=== PATIENT | female | born 1970 | race Caucasian/White ===

== ENCOUNTER → 2021-07-05 08:12 | Outpatient (BNVA) | payer BC, SELFPAY | PROVIDERS: Family Provider Family Medicine; PCP Nurse Practitioner Family; Visit Provider Obstetrics & Gynecology | DX: D25.9 Leiomyoma of uterus, unspecified (principal) | CPT/HCPCS: 76830 ==

== ENCOUNTER 2021-07-26 08:21 | Outpatient (CLI) | payer BC, SELFPAY ==
--- NOTE | 2021-07-26 08:24 | MM_ITS ---
WS: [id number] Exam: [place] [id number] Date/Time of Exam: 07/26/2021 8:26 AM Reason For Exam: SCREENING VIEWS: MLO and CC views both breasts. Comparison made with prior exam of 07/13/2015 and 06/17/2019. Findings: There was no sign of mass, architectural distortion or suspicious calcification in either breast. He terogeneously [place] MM/[place] [id number] Impression: BI-RADS: 2-Benign FOLLOW-UP: 1 Year Follow-up This mammogram was also analyzed by the Computer Aided Detection System R2 Imag e Rigging Supervisor.
== END 2021-07-26 08:22 | disposition home or self-care (01) ==
LOC: RADSHAW 08:23
PROVIDERS: PCP Nurse Practitioner Family; Visit Provider Nurse Practitioner Family
DX: Z12.31 Encounter for screening mammogram for malignant neoplasm of breast (principal)
CPT/HCPCS: 77067

== ENCOUNTER → 2021-11-05 08:32 | Outpatient (BNVA) | payer BC, SELFPAY | PROVIDERS: PCP Nurse Practitioner Family; Visit Provider Obstetrics & Gynecology | DX: Z20.822 Contact with and (suspected) exposure to COVID-19 (principal); D25.9 Leiomyoma of uterus, unspecified; N93.9 Abnormal uterine and vaginal bleeding, unspecified | CPT/HCPCS: 87635 ==

== ENCOUNTER 2021-11-11 13:25 | Inpatient (IN) | payer BC, SELFPAY ==
[2021-11-08 09:16] VITALS: BMI 25.6
--- NOTE | 2021-11-08 09:48 | ANES.PREANE2 ---
Pre-Anesthetic Assessment Height/Weight: Height 1.57 m Weight 63.503 kg Operation Date: 11/11/21 07:00 Proposed Procedures p Total Abdominal Hysterectomy 18871/d25.9/n93.9(Not Applicable) - Gracie Oliveira MD s Salpingectomy(Bilateral) - Gracie Oliveira MD Familial anesthetic complications: None Was Beta Julieta taken within 24 hours: N/A Was Clonidine taken within 24 hours: N/A Social No alcohol and No tobacco Exam alert, oriented x 3, clear to auscultation bilaterally and regular rate & rhythm Airway Submandibular: within normal limits Cervical ROM: within normal limits Mallampati: Class II Dentition: full CV/HEM Hypertension Metabolic Thyroid Disease Anesthetic Plan ASA status: 2 Anesthesia: General Risk of > 500 ml blood loss (7ml/kg in children): Yes, adequate IV access and fluids planned Medications/Allergies Home Medications Medication Instructions Recorded Confirmed Last Taken Type lisinopril 10 1 tab PO DAILY 06/10/20 11/08/21 Unknown History mg-hydrochlorothiazide 12.5 mg tablet ibuprofen 600 mg tablet 600 mg PO Q8H PRN 06/03/21 10/06/21 Unknown History Calcium 600 + D(3) 11/08/21 Unknown History levothyroxine 75 mcg tablet 75 mcg PO DAILY 11/08/21 11/08/21 Unknown History Allergies Allergy/AdvReac Type Severity Reaction Status Date / Time No Known Allergies Allergy Verified 11/08/21 09:12 [facility] Anesthesia Medical History Chronic hypertension Has had elevated blood pressure on and off since about 2016. Started on medication in April 2020 Hypothyroidism Diagnosed in April 2020 and is managed on medication by primary care provider No pertinent past medical history Denies diabetes, asthma, seizures, DVT/PE PCP: CHLOE Treadwell Surgical History S/P LEEP 11/02/2007----------> office LEEP procedure done by Dr. Patel for BLUE-3. Pathology of LEEP informed BLUE-3 and BLUE-2 with negative margins. Family History Mother Hypertension Diabetes Father Hyperlipidemia Heart disease Grandfather Heart disease maternal Denies family history of Colon cancer Ovarian cancer Breast cancer Uterine cancer Stroke Female Reproductive History Date of last menstrual period: 10/25/21 Data Anesthesia Cardiac Studies: No Data to Display
[2021-11-11] VITALS (16 sets, daily range): BP systolic 95–141; BP diastolic 45–84; PULSE 63–106; RESP 14–18; TEMP 36.2–37; O2SAT 90–99
[2021-11-11 09:53] LABS: OR HCG Qualitative Urine Negative (Negative)
[2021-11-11] MEDS: sodium chloride 0.9% 1,000 ML 30 ML IV (10:25)
--- NOTE | 2021-11-11 10:29 | P.ANESUD_ITS ---
Pre-Anesthetic Update Pre-Anesthetic Assessment: Date of Surgery/Procedure: 11/11/21 Preop Rema gnosis: Fibroid uterus Proposed Procedure: Operation Date: 11/11/21 10:50 Proposed Procedures p Total Abdominal Hysterectomy 41056/d25.9/n93.9(Not Applicable) - Gracie Valladares MD s Salpingectomy(Bilateral) - Gracie Oliveira MD Any changes to Pre-Anesthetic Assessment?: No Changes from Pre-Anesthetic Assessment: none Last Intake: Intake Last Liquid Date 11/10/21 Last Liquid Time 21:00 Last Solid Date 11/10/21 Last Solid Time 18:00 Vitals: Temperature 97.9 F 11/11/21 09:35 Temperature Source Temporal Artery S can 11/11/21 09:35 Pulse Rate 106 H 11/11/21 09:35 Pulse Rhythm 11/11/21 09:39 Pulse Strength 3+ Normal 11/11/21 09:39 Respiratory Rate 16 11/11/21 09:35 Blood Pressure 141/84 11/11/21 09:35 Blood Pressure Katy n 103 11/11/21 09:35 Pulse Oximetry 99 11/11/21 09:35 Oxygen Delivery Me thod 11/11/21 09:39 Cardiac Studies: No Data to Display
--- NOTE | 2021-11-11 10:40 | W.PM.OPSUD ---
Surgery/Procedure H&P Update DATE OF PROCEDURE: November 11, 2021 DATE H&P PERFORMED: 11/02/21 H&P UPDATE INFORMATION: I have reviewed H&P completed within last 30 days, I have examined patient prior to procedure, No changes to prior documentation and H&P is in [facility] EMR on date indicated PREOP DIAGNOSIS: Fibroid uterus PLANNED PROCEDURE: Operation Date: 11/11/21 10:50 Proposed Procedures p Total Abdominal Hysterectomy 73946/d25.9/n93.9(Not Applicable) - Gracie Oliveira MD s Salpingectomy(Bilateral) - Gracie Oliveira MD
--- NOTE | 2021-11-11 11:24 | SUR.OPER ---
attempted to contact family for surgical update
--- NOTE | 2021-11-11 12:57 | P.OP_ITS ---
Operative Report Date of procedure: November 11, 2021 OPERATIVE REPORT Date of surgery: 11/11/2021 Date of dictation: 11/11/2021 Preoperative diagnosis:Fibroid uterus, abnormal uterine bleeding, abdominal/back pain---- Postoperative diagnosis/findings: Same, enlarged multifibroid uterus, normal tubes and ovaries bilaterally Procedure done: Total abdominal hysterectomy, bilateral salpingo-oophorectomy Specimens removed/disposition of specimens: Uterus cervix bilateral tubes and ovaries Surgeon: Dr. Gracie Gray Practical Nursing Faculty: Madelyn Escoto Anesthesia: General endotracheal tube anesthesia Estimated blood loss: 150 ml Intravenous fluids: 900 mL of LR Urine output: 100 mL of clear urine at the end of procedure Medications: As per anesthesia records Complications: None, patient was extubated and taken to the recovery room in a stable condition. PROCEDURE: After consent was obtained patient was taken to the operating room where she was placed under general anesthesia.? Sequential compression boots and Bunn catheter were placed.? She was prepped and draped in the usual sterile fashion in a dorsal supine position. A horizontal suprapubic incision was made using a scalpel about 1 to 2 cm above the pubic bone and this was extended down to the Fascia using a combination of scalpel and Bovie. Good hemostasis was achieved in the subcutaneous field..? This was carried down to the fascia with electrocautery and a scalpel.? Fascia was incised in the midline and extended laterally sharply. Rectus muscles were in the midline sharply and? Peritoneum was identified and was sharply entered.? No adhesions were noted of the bowel or uterus onto the anterior abdominal wall.? The uterus was exteriorized and then the bowel was packed away and pelvis was visualized. The uterus was enlarged with multiple fibroids. The right and left round ligaments were identified clamped with the abdominal? Voyant and cauterized and then cut.? The broad ligament incision was extended inferiorly and carried over the lower uterine segment to meet with the dissection the contralateral side and a bladder flap was created.? The bladder was then off from the cervix sharply-this was done easily. A lot of blood vessels are noted in this area. Once the bladder was safely taken off it was inspected and no defects were noted and bladder blade was placed. The right ovarian ligament, fallopian tube and round ligament were clamped cauterized and then cut with the Voyant and this was continued inferiorly up until the level of the internal os first done on the right side and then done taking care to stay as close to the uterus as possible.? Once we were at the level of the cervix we switched to suture and clamping. On the left side the IP ligament was clamped cauterized and cut and the entire left side of the uterus was from the pelvic sidewall. Curved clamps were placed at the level of the internal os. These were cut, and then tied with 0 Vicryl suture bilaterally.? The bladder was then sharply dissected away from the cervix until it was carried below the level of the cervix.? The remaining portion of the parametria was then serially clamped, cut, and suture ligated with 0 Vicryl suture bilaterally until the bottom of the cervix was reached.? At this point, sharply curved clamps were placed across the top of the vagina and the remaining portion of the cervix excised. With this the uterus and cervix were removed. The cervix was inspected and noted to be complete.? The corners of the cuff were secured with 0 Vicryl suture in a [place] fashion bilaterally.? The remaining portion of the vaginal cuff was closed with 0 Vicryl suture in an interrupted [id number] fashion.? The area was thoroughly inspected and noted to be hemostatic and intact? It was irrigated and noted to be hemostatic. Attention was then turned towards the fallopian tubes and ovaries on the right side. They were grasped with [place] and using the abdominal Voyant the mesosalpinx and IP ligament were clamped cauterized and cut serially so that the fallopian tubes and ovary were from the sidewall.? Care was taken to stay medial well away from the pelvic sidewall.? The ureters were visualized and peristalsis seen. The pelvis was irrigated once again hemostasis was noted.? Surgicel was placed over the vaginal cuff. The packing and retractor was removed.? The peritoneum was closed in a continuous stitch.? The rectus muscle was reapproximated using mattress sutures.Hemostasis was achieved in the muscle layer. The fascia was closed with 0 Vicryl in a continuous fashion and good reapproximation was obtained. The subcutaneous plane was irrigated well and hemostasis was achieved with the Bovie .? It was reapproximated using 2-0 plain sutures in a continuous fashion. Skin was closed with a 4-0 Monocryl in a subcuticular fashion. ?Pressure dressing was applied onto the abdomen. Lap instrument and needle counts were correct x2. Bunn catheter was replaced. Patient was extubated without difficulty and taken to the recovery room in a stable condition. This documentation was created by [employer] kosher sealer software (known for inherent kosher sealer error). Every effort was made to assure accuracy of kosher sealer. Any obvious errors or omissions should be clarified with the author of the document. Pre-op diagnosis: Preop Diagnosis Fibroid uterus
[2021-11-11] MEDS: fentaNYL 50 mcg/mL INJ 2mL IVP (13:31)
[2021-11-11] MEDS: morphine 4 mg/mL SDV 1 mL 1 MG IVP ×2 (14:15→17:25)
[2021-11-11] MEDS: ibuprofen 800 mg tablet PO ×2 (14:16→22:07)
[2021-11-11] MEDS: HYDROcodone-acetaminophen 5-325 mg Tablet PO ×2 (14:16→19:27)
[2021-11-11] MEDS: dextrose 5%-lactated ringers 1,000 ML 125 ML IV ×2 (14:32→22:02)
[2021-11-11] MEDS: docusate sodium 100 mg Capsule PO (17:26)
--- NOTE | 2021-11-11 19:21 | ANE.PACU2 ---
Inpatient post-anesthesia follow up: Airway intact: Yes Vital signs: Temperature 97.8 F Pulse Rate 88 Respiratory Rate 18 Blood Pressure 115/71 Pulse Oximetry 97 Oxygen Delivery Me thod Room Air Oxygen Flow Rate Fraction of Inspir ed Oxygen Hydration adequate: Yes Nausea and vomiting: Yes Mental status: Baseline
[2021-11-11] MEDS: morphine 4 mg/mL SDV 1 mL 2 MG IVP (19:26)
[2021-11-12] MEDS: HYDROcodone-acetaminophen 5-325 mg Tablet PO ×5 (00:23→21:26)
[2021-11-12 00:35] VITALS: BP 125/81; PULSE 99; RESP 18; TEMP 36.5; O2SAT 96
--- NOTE | 2021-11-12 01:10 | PC.NURSE ---
Re-assessed pain after giving Eads at 0023. Patient states it helped a tiny bit, but really it's about the same. When asked to rate her pain, she rated it at 5 out of 10 (it previously was 6 out of 10). I talked to her about morphine for break through pain, she stated, I don't want to take anything else right now, it is tolerable.
[2021-11-12 02:53] VITALS: RESP 18
[2021-11-12] MEDS: morphine 4 mg/mL SDV 1 mL 1 MG IVP (02:53)
[2021-11-12 04:25] VITALS: BP 113/58; PULSE 81; RESP 18; TEMP 36.8; O2SAT 97
[2021-11-12 05:16] LABS: Hematocrit 33.4 % (37.0-47.0); Hemoglobin 11.1 g/dL (11.5-15.3); Mean Corpuscular HGB Conc 33.2 g/dL (30.0-36.0); Mean Corpuscular Hemoglobin 31.7 pg (28.0-34.0); Mean Corpuscular Volume 95.4 fl (81-99); Mean Platelet Volume 8.5 fL (7.4-10.4); Platelet Count 291 10^3/cmm (130-400); Red Cell Distribution Width 11.9 % (12.1-15.1)
[2021-11-12] MEDS: ibuprofen 800 mg tablet PO ×3 (06:16→21:26)
[2021-11-12] MEDS: dextrose 5%-lactated ringers 1,000 ML 125 ML IV (06:56)
--- NOTE | 2021-11-12 07:00 | PC.NURSE ---
Laps Patient completed 2 laps prior to 0700.
[2021-11-12] MEDS: docusate sodium 100 mg Capsule PO (10:01)
[2021-11-12 10:03] VITALS: BP 150/83; PULSE 73; RESP 17
[2021-11-12] MEDS: ondansetron 2 mg/ML SDV 2 mL 4 MG IVP (11:34)
--- NOTE | 2021-11-12 12:47 | P.PN_ITS ---
Subjective Subjective: SUBJECTIVE: Ms. Wallace is doing well today. She has not yet voided since having the catheter removed and has drank a lot of water and feels like this made her little nauseous now. She was doing fine before and denied any problem. She is tolerating full liquids as well. Pain is well controlled with p.o. pain medication. She has ambulated only a little bit today. She denies vomiting, fever, chills, shortness of breath and chest pain and overall feels pretty good. Other than feeling nausea she feels okay OBJECTIVE/PHYSICAL EXAM: Gen.: No acute distress Heart: S1-S2 heard, regular rate and rhythm Lungs: Clear to auscultation bilaterally Abdomen: Soft, nondistended, no rebound, no guarding, some tenderness around incision. Incision: Clean dry and intact with Steri-Strips. Legs: No calf tenderness, no pedal edema. ASSESSMENT AND PLAN: 51-year-old [id number] status post JUSTO/BSO, postoperative day #1 -Doing well-continue routine postoperative care -She is a little nauseous and she may have had too much liquids--we will give her Zofran for nausea now and will see if she gets better. Anticipate holding it full liquids until she consistently passes gas--if she is doing better we will give regular diet in the evening. -Continue p.o. Dilaudid for pain-evidence of her pain is well controlled with p.o. pain medication -Continue incentive spirometer use and ambulation -SCDs while in bed -Anticipate discharge home tomorrow as long as she continues to do well and starts tolerating regular diet -Vital signs stable and hemoglobin stable -Blood pressures are overall normal and we will hold her blood pressure medication for now Vitals/I&O/Wt Last Vital Signs Temp 98.2 F 11/12/21 04:25 Pulse 73 11/12/21 10:03 Resp 17 11/12/21 10:03 BP 150/83 11/12/21 10:03 Pulse Ox 97 11/12/21 04:25 11/11/21 11/12/21 11/12/21 22:59 06:59 14:59 Intake Total 937.5 / 1947.5 1000 / 2947.5 Output Total 306 / 556 685 / 1241 300 / 300 Balance 631.5 / 1391.5 315 / 1706.5 -300 / -300 Physical Exam Urinary Catheter Management: Bunn Latex: Cath Placed During This Visit: yes, but has since been removed by the nurse Reason for Continuing Indwelling Catheter: Decision to DC Catheter Urinary Catheter Date of Insertion: 11/11/21 Urinary Catheter Time of Insertion: 11:10 Date Urinary Catheter Removed: 11/12/21 Time Urinary Catheter Discontinued: 09:00 Data : 11/12/21 05:00 Attestations Medical Necessity Statement*: Patient needs to stay for 1 or 2 more nights to recover from surgery Coding Level of Care Code Acute Maintenance Engineer [employer] for Toshia Jha
[2021-11-12] MEDS: simethicone 80 mg Chew PO (15:07)
[2021-11-12 15:10] VITALS: BP 151/88; PULSE 74; RESP 16; TEMP 36.8; O2SAT 97
[2021-11-12 21:31] VITALS: BP 141/82; PULSE 74; RESP 16; TEMP 36.7
[2021-11-13 04:26] VITALS: BP 134/74; PULSE 83; RESP 15; O2SAT 96
[2021-11-13 04:49] LABS: Basophils % 0.5 %; Eosinophils # 0.1 10^3/uL (0.0-0.8); Eosinophils % 1.4 %; Hematocrit 35.3 % (37.0-47.0); Hemoglobin 11.7 g/dL (11.5-15.3); Lymphocytes # 1.4 10^3/uL (0.8-4.8); Lymphocytes % 17.4 %; Mean Corpuscular HGB Conc 33.1 g/dL (30.0-36.0); Mean Corpuscular Hemoglobin 31.4 pg (28.0-34.0); Mean Corpuscular Volume 94.6 fl (81-99); Mean Platelet Volume 8.5 fL (7.4-10.4); Monocytes # 0.8 10^3/uL (0.2-0.9); Monocytes % 10.4 %; Neutrophils # 5.68 10^3/uL (1.8-7.7); Neutrophils % 70.1 %; Nucleated Red Blood Cells % 0 %; Platelet Count 287 10^3/cmm (130-400); Red Blood Count 3.73 10^6/uL (4.1-5.3); Red Cell Distribution Width 11.8 % (12.1-15.1); White Blood Count 8.1 10^3/uL (4.0-10.0)
[2021-11-13] MEDS: ibuprofen 800 mg tablet PO (07:23)
[2021-11-13 07:30] VITALS: BP 152/91; PULSE 98; RESP 18; TEMP 36.7
[2021-11-13] MEDS: docusate sodium 100 mg Capsule PO (09:12)
[2021-11-13 09:15] VITALS: BP 143/88; PULSE 80
[2021-11-13 12:30] VITALS: BP 133/75; PULSE 101; RESP 18; TEMP 36.8
--- NOTE | 2021-11-13 13:32 | P.DS_ITS ---
Discharge Providers RECEPTION CLERK Date of Admission: 11/11/21 13:25 Date of Discharge: 11/13/21 Attending Provider at Admission: Gracie Oliveira MD Attending Provider at Discharge: Gracie Oliveira MD ADMISSION DIAGNOSIS: Fibroid uterus, abnormal uterine bleeding, abdominal/back pain DISCHARGE DIAGNOSIS: Status post JUSTO/BSO on 11/11/2021 PREHOSPITAL COURSE: Ms. Wallace is a 51-year-old 1 para 1001 with a fibroid uterus and had tried medical management with minimal improvement and desires a hysterectomy. She presented on 11/11/2020 for schedule surgery. Postoperative diagnosis/findings: Same, enlarged multifibroid uterus, normal tubes and ovaries bilaterally Procedure done: Total abdominal hysterectomy, bilateral salpingo-oophorectomy Specimens removed/disposition of specimens: Uterus cervix bilateral tubes and ovaries HOSPITAL COURSE: She underwent an uncomplicated JUSTO/BSO on 11/11/2021. She did well on postoperative day 0 and was ambulating well, tolerating clear liquid diet. Pain was well-controlled with by mouth and IV pain medication. She denied nausea, vomiting, fever, chills, shortness of breath, leg pain. She had minimal vaginal bleeding. Bunn catheter was kept overnight and she had adequate urine output. On postoperative day #1 she continued to do well with stable vital signs and stable hemoglobin at 11.9. Bunn catheter was removed and patient was able to void with minimal residual noted on bladder scan. She ambulated well started passing flatus and then tolerated a regular diet. She continued to do well on postoperative day #2. She was discharged home on postoperative day #2 in a stable condition. Warning signs for wound infection, cuff infection, DVT/PE were reviewed with her. Post surgical activity restrictions were also reviewed with her at all her questions were answered to her satisfaction. This documentation was created by [employer] home service demonstrator software (known for inherent home service demonstrator error). Every effort was made to assure accuracy of home service demonstrator. Any obvious errors or omissions should be clarified with the author of the document. Primary Care Provider: CHLOE Treadwell Reason for Visit Reason for Visit: abnormal uterine bleeding Physical Exam Urinary Catheter Management: Bunn Latex: Cath Placed During This Visit: yes, but has since been removed by the nurse Reason for Continuing Indwelling Catheter: Decision to DC Catheter Urinary Catheter Date of Insertion: 11/11/21 Urinary Catheter Time of Insertion: 11:10 Date Urinary Catheter Removed: 11/12/21 Time Urinary Catheter Discontinued: 09:00 History History History 1 Term 1 Miscarriages/Ectopic 0 0 Living Children 1 Discharge Data Studies Completed and Pending Pending at discharge Category Date Time Status Pathology: Surgical [PTH] Routine Pth 11/11/21 12:31 Received Laboratory Results WBC 8.1 10^3/uL (4.0-10.0) 11/13/21 04:42 RBC 3.73 10^6/uL (4.1-5.3) L 11/13/21 04:42 Hgb 11.7 g/dL (11.5-15.3) 11/13/21 04:42 Hct 35.3 % (37.0-47.0) L 11/13/21 04:42 MCV 94.6 fl (81-99) 11/13/21 04:42 MCH 31.4 pg (28.0-34.0) 11/13/21 04:42 MCHC 33.1 g/dL (30.0-36.0) 11/13/21 04:42 RDW 11.8 % (12.1-15.1) L 11/13/21 04:42 Plt Count 287 10^3/cmm (130-400) 11/13/21 04:42 MPV 8.5 fL (7.4-10.4) 11/13/21 04:42 Neut % (Auto) 70.1 % 11/13/21 04:42 Lymph % (Auto) 17.4 % 11/13/21 04:42 [place] % (Auto) 10.4 % 11/13/21 04:42 Eos % (Auto) 1.4 % 11/13/21 04:42 Baso % (Auto) 0.5 % 11/13/21 04:42 Neut # (Auto) 5.68 10^3/uL (1.8-7.7) 11/13/21 04:42 Lymph # (Auto) 1.4 10^3/uL (0.8-4.8) 11/13/21 04:42 [place] # (Auto) 0.8 10^3/uL (0.2-0.9) 11/13/21 04:42 Eos # (Auto) 0.1 10^3/uL (0.0-0.8) 11/13/21 04:42 Baso # (Auto) 0.0 10^3/uL (0.0-0.1) 11/13/21 04:42 Nucleated RBC % (auto) 0 % 11/13/21 04:42 Nucleated RBCs # 0.0 /100WBC 11/13/21 04:42 Urine HCG, Qual Negative (Negative) 11/11/21 09:51 Blood Type A Positive 11/11/21 10:05 Rho(D) Type Positive 11/11/21 10:05 Antibody Screen Negative 11/11/21 10:05 Vitals Last Vital Signs Temp 98.1 F 11/13/21 07:30 Pulse 80 11/13/21 09:15 Resp 18 11/13/21 07:30 BP 143/88 11/13/21 09:15 Pulse Ox 96 11/13/21 04:26 Discharge Plan Discharge Patient Disposition: Home Condition: Stable Prescriptions: New ibuprofen 800 mg tablet 800 mg PO Q8H Qty: 30 0RF docusate sodium 100 mg Capsule 100 mg PO BID PRN (Reason: constipation) Qty: 30 0RF hydrocodone-acetaminophen 5-325 mg tablet 1 tab PO Q6H Qty: 25 0RF Rx Instructions: Alternate with ibuprofen Continued lisinopril-hydrochlorothiazide 10-12.5 mg tablet 1 tab PO DAILY 0RF levothyroxine 75 mcg Tablet 75 mcg PO DAILY 0RF Calcium 600 + D(3) 0RF Discontinued ibuprofen 600 mg tablet 600 mg PO Q8H PRN (Reason: Pain, Mild) 0RF Discharge Orders: Discharge Order (Routine); Ordered 11/13/21 Ordered By: Gracie Oliveira Referrals: Gracie Oliveira MD [Physician] - (1 WEEK APPOINTMENT 11/29/21 [id number] WEEK APPOINTMENT 12/27/21 1030 ) Patient Instructions: Ibuprofen (By mouth), Levothyroxine (By mouth), Lisinopril/Hydrochlorothiazide (By mouth), Calcium/Vitamin D Supplement (By mouth), Hysterectomy (DC), Opioid Safety Activity Restrictions/Additional Instructions: No heavy lifting for 6 weeks, pelvic rest for 6 weeks Follow-up with Dr. Gray 2 weeks in 6 weeks Emergency room precautions reviewed Discharge Attestations RECEPTION CLERK Time Spent in Discharge Care*: greater than 30 min Coding Level of Care Code Acute Well Treatment Offsider for Toshia Jha
[2021-11-13 14:07] VITALS: BP 133/75; PULSE 101; RESP 18; TEMP 36.8
== END 2021-11-13 13:30 | disposition home or self-care (01) | DRG 743 ==
LOC: OBGYN 13:27
PROVIDERS: Anesthesiology; Admitting Provider Obstetrics & Gynecology; PCP Nurse Practitioner Family; Visit Provider Obstetrics & Gynecology
PROC: 0UT90ZZ Resection of Uterus, Open Approach (ICD-10-PCS; CPT 58150; principal; 2021-11-11 10:50)
PROC: 0UT90ZZ Resection of Uterus, Open Approach (ICD-10-PCS; CPT 58720; 2021-11-11 10:50)
DX: D25.9 Leiomyoma of uterus, unspecified (principal); N93.9 Abnormal uterine and vaginal bleeding, unspecified; I10 Essential (primary) hypertension; E03.9 Hypothyroidism, unspecified; D64.9 Anemia, unspecified
CPT/HCPCS: 36415; 51702; 51798; 84703; 85025; 85027; 86850; 86900; 88307; J0690; J1100; J1200; J2250; J2270; J2370; J2405; J2704; J2710; J3010; J3490; J7030

== ENCOUNTER 2022-07-27 13:59 | Outpatient (CLI) | payer BC, SELFPAY ==
--- NOTE | 2022-07-27 14:08 | MM_ITS ---
WS: [id number] BILATERAL 3D TOMOSYNTHESIS DIGITAL DIAGNOSTIC MAMMOGRAPHY WITH CAD CLINICAL INFORMATION: N63.10 - Unspecified lump in the right breast, unspecified HISTORY: Reported lump RIGHT breast 5:00 COMPARISON: July 26, 2021 TECHNIQUE: Bilateral CC, MLO, and ML views. FINDINGS: The breasts are composed of heterogeneous fibroglandular density, which can limit the detection of sm all underlying mass lesions. Palpable marker RIGHT breast. No underlying parenchymal abnormalities. U ltrasound described below. No suspicious abnormalities LEFT breast. ULTRASOUND BREAST RIGHT TECHNIQUE: Ultrasound right breast focused area of concern. CLINICAL INFORMATION: N63.10 - Unspecified lump in the right breast, unspecifie... COMPARISON: None. FINDINGS: Ultrasound RIGHT breast 5:00 position. Dense underlying parenchymal tissue. No cystic or solid lesions. No suspicious lesions are clear for biopsy. Recommend return to annual screening mammography. MM/[place] [id number] IMPRESSION: BI-RADS: 2-Benign FOLLOW UP: 1 Year Follow-up Recommend return to annual screening mammography.
== END 2022-07-27 14:00 | disposition home or self-care (01) ==
LOC: RAD 14:01
PROVIDERS: PCP Nurse Practitioner Family; Visit Provider Obstetrics & Gynecology
DX: N63.14 Unspecified lump in the right breast, lower inner quadrant (principal)
CPT/HCPCS: 76642; 77062; G0279

== ENCOUNTER 2023-07-28 07:13 | Outpatient (CLI) | payer BC, SELFPAY ==
--- NOTE | 2023-07-28 07:30 | MM_ITS ---
WS: [id number] BILATERAL SCREENING DIGITAL TOMOSYNTHESIS MAMMOGRAM WITH CAD HISTORY: SCREEN COMPARISON: 07/27/2022 and 07/26/2021 Bilateral CC and MLO views with tomosynthesis and synthetic mammography submitted. Computer aided det ection analyzed. Breast composition: The breasts are extremely dense, which lowers the sensitivity of mammography. No suspicious masses, microcalcifications or architectural distortion. IMPRESSION: MM/[place] [id number] BI-RADS: 1-Negative FOLLOW UP: 1 Year Follow-up
== END 2023-07-28 07:14 | disposition home or self-care (01) ==
LOC: RAD 07:13
PROVIDERS: PCP Nurse Practitioner Family; Visit Provider Nurse Practitioner Family
DX: Z12.31 Encounter for screening mammogram for malignant neoplasm of breast (principal)
CPT/HCPCS: 77063; 77067

== ENCOUNTER 2024-08-01 07:42 | Outpatient (CLI) | payer BC, SELFPAY ==
--- NOTE | 2024-08-01 07:47 | MM_ITS ---
WS: [id number] BILATERAL SCREENING DIGITAL TOMOSYNTHESIS MAMMOGRAM WITH CAD HISTORY: SCREEN COMPARISON: 07/28/2023, 07/27/2022 Bilateral CC and MLO views with tomosynthesis and synthetic mammography submitted. Computer aided det ection analyzed. Breast composition: The breasts are extremely dense, which lowers the sensitivity of mammography. No suspicious masses, microcalcifications or architectural distortion. MM/MM scr BI tomosynthesis [id number] IMPRESSION: BI-RADS: 1 - Negative FOLLOW UP: 1 Year Follow-up
== END 2024-08-01 07:43 | disposition home or self-care (01) ==
LOC: RAD 07:43
PROVIDERS: PCP Nurse Practitioner Family; Visit Provider Nurse Practitioner Family
DX: Z12.31 Encounter for screening mammogram for malignant neoplasm of breast (principal); R92.333 Mammographic heterogeneous density, bilateral breasts
CPT/HCPCS: 77063; 77067

== ENCOUNTER 2025-08-04 08:09 | Outpatient (CLI) | payer BC, SELFPAY ==
--- NOTE | 2025-08-04 08:14 | MM_ITS ---
WS: [id number] BILATERAL 3D TOMOSYNTHESIS DIGITAL SCREENING MAMMOGRAPHY WITH CAD CLINICAL INFORMATION: SCREENING HISTORY: Screening mammogram. No current complaints. COMPARISON: 2023 TECHNIQUE: Bilateral CC and MLO views. FINDINGS: The breasts are composed of heterogeneous fibroglandular density tissue, which can limit the detection of small underlying mass lesions. No suspicious mass, asymmetry, calcifications, or architectural distortion. No evidence of malignancy. MM/MM scr tomosynthesis [id number] IMPRESSION: DENSITY: The breasts are heterogeneously dense, which may obscure small masses. BI-RADS: 1 - Negative FOLLOW UP: 1 Year Follow-up Recommend return to annual screening mammography.
== END 2025-08-04 08:10 | disposition home or self-care (01) ==
LOC: RAD 08:10
PROVIDERS: PCP Nurse Practitioner Family; Visit Provider Nurse Practitioner Family
DX: Z12.31 Encounter for screening mammogram for malignant neoplasm of breast (principal); R92.333 Mammographic heterogeneous density, bilateral breasts; R92.323 Mammographic fibroglandular density, bilateral breasts
CPT/HCPCS: 77063; 77067